=== PATIENT | female | born 1985 | race Caucasian/White ===

== ENCOUNTER → 2017-07-08 | Outpatient (CLI) | payer OTHER ==
[~2017-07-08] MED LIST: PRENTAB26 PO
[2017-07-08 16:15] LABS: URINE APPEARANCE CLEAR (CLEAR); URINE BILIRUBIN NEG (NEG); URINE COLOR YELLOW; URINE NITRITE NEG (NEG); URINE SPECIFIC GRAVITY 1.012 (1.000-1.030); UROBILINOGEN NEG (NEG)
[2017-07-08 16:17] LABS: MANUAL MICROSCOPIC REQUIRED? NO; REVIEW REQ? NO
== END | disposition home or self-care (01) ==
LOC: C.LABSPEC 15:56
PROVIDERS: ATTEND Obstetrics & Gynecology
DX: Z34.83 Encounter for supervision of other normal pregnancy, third trimester (principal); Z3A.00 Weeks of gestation of pregnancy not specified

== ENCOUNTER → 2017-07-13 | Outpatient (CLI) | payer OTHER ==
[2017-07-13 11:18] LABS: BASO % 0.1 %; BASO ABS # 0.01 K/uL (0-0.2); COMPLETE YES; EOS % 0.5 %; HEMATOCRIT 39.5 % (37-47); IG% 0.5 %; LYMPH % 21.5 %; LYMPH ABS # 2.08 K/uL (1.2-3.4); MEAN CELL VOLUME 90.4 fL (80-100); MEAN CORPUSCULAR HGB CONC 33.2 g/dl (32-36); MEAN PLATELET VOLUME 10.1 fL (7.4-10.4); MONO % 6.3 %; NEUT % 71.1 %; PLATELET COUNT 191 K/uL (130-400); RED BLOOD COUNT 4.37 M/uL (4.2-5.4); WHITE BLOOD COUNT 9.69 K/uL (4.8-10.8)
[2017-07-16 00:33] LABS: CHLAMYDIA TRACH RNA*** NOT DETECTED (NOT DETECTED); GC (NEIS GONORRHOEAE)RNA** NOT DETECTED (NOT DETECTED)
== END | disposition home or self-care (01) ==
LOC: C.LAB1850 10:20
PROVIDERS: ATTEND Obstetrics & Gynecology
DX: Z34.81 Encounter for supervision of other normal pregnancy, first trimester (principal)

== ENCOUNTER → 2017-08-10 | Outpatient (CLI) | payer OTHER ==
[2017-08-10 11:07] LABS: URINE APPEARANCE CLEAR (CLEAR); URINE BILIRUBIN NEG (NEG); URINE COLOR YELLOW; URINE NITRITE NEG (NEG); URINE SPECIFIC GRAVITY 1.016 (1.000-1.030); UROBILINOGEN NEG (NEG)
[2017-08-10 11:11] LABS: MANUAL MICROSCOPIC REQUIRED? NO; REVIEW REQ? NO
== END | disposition home or self-care (01) ==
LOC: C.LABSPEC 10:35
PROVIDERS: ATTEND Obstetrics & Gynecology
DX: O23.41 Unspecified infection of urinary tract in pregnancy, first trimester (principal)

== ENCOUNTER → 2017-11-15 | Outpatient (CLI) | payer OTHER ==
[2017-11-15 17:48] LABS: HEMATOCRIT 34.4 % (37-47); HEMOGLOBIN 11.7 g/dL (12.0-16.0)
== END | disposition home or self-care (01) ==
LOC: C.LAB1850 16:30
PROVIDERS: ATTEND Obstetrics & Gynecology
DX: Z34.83 Encounter for supervision of other normal pregnancy, third trimester (principal)

== ENCOUNTER → 2018-01-11 | Outpatient (CLI) | payer OTHER | END | disposition home or self-care (01) | LOC: C.LABSPEC 17:31 | PROVIDERS: ATTEND Obstetrics & Gynecology | DX: Z34.83 Encounter for supervision of other normal pregnancy, third trimester (principal) ==

== ENCOUNTER 2018-02-05 19:30 | Inpatient (IN) | payer OTHER ==
[~2018-02-05] VITALS: Ht 165.1 cm; Wt 75.0 kg
[2018-02-05] MEDS ORDERED: LACTATED RINGER'S 1000ML 1,000 ML IV SCH (20:29)
[2018-02-05] MEDS ORDERED: LACTATED RINGER'S 1000ML 1,000 ML IV PRN (20:29)
[2018-02-05 20:39] VITALS: Ht 165.1 cm; Wt 75.0 kg
[2018-02-05 20:53] LABS: HEMATOCRIT 35.5 % (37-47); HEMOGLOBIN 12.2 g/dL (12.0-16.0); MEAN CELL VOLUME 88.1 fL (80-100); MEAN CORPUSCULAR HEMOGLOBIN 30.3 pg (25-34); MEAN CORPUSCULAR HGB CONC 34.4 g/dl (32-36); MEAN PLATELET VOLUME 10.9 fL (7.4-10.4); PLATELET COUNT 163 K/uL (130-400); WHITE BLOOD COUNT 17.14 K/uL (4.8-10.8)
[2018-02-05] MEDS ORDERED: BUPIVACAINE 0.25% 30 ML VIAL ONE (21:16)
[2018-02-05] MEDS ORDERED: FENTANYL CITRATE INJ 50 MCG/1 ML 2 ML VIAL ONE (21:17)
[2018-02-05] MEDS ORDERED: FENTANYL 2MCG/ML ROPIV 1.25MG/ML 100ML BAG EPI ONE (21:17)
[2018-02-05] MEDS ORDERED: EpHEDrine SULFATE INJ 50 MG/ML AMP ONE (21:17)
[2018-02-05] MEDS ORDERED: LACTATED RINGER'S 1000ML 500 ML IV PRN (22:42)
[2018-02-05] MEDS ORDERED: NALOXONE HCL INJ 1 MG in SODIUM CHLORIDE 0.9% 1000ML 1,000 ML IV PRN (22:42)
[2018-02-05] MEDS ORDERED: EpHEDrine SULFATE INJ 50 MG/ML AMP IV PRN (22:45)
[2018-02-05] MEDS ORDERED: FENTANYL 2MCG/ML ROPIV 1.25MG/ML 100ML BAG EPI PRN (22:45)
[2018-02-05] MEDS ORDERED: NALOXONE HCL INJ 0.4 MG/1 ML VIAL/CARP IV PRN (22:45)
[2018-02-05] MEDS ORDERED: DiphenhydrAMINE HCL 50 MG/ML VIAL IV PRN (22:45)
[2018-02-05] MEDS ORDERED: ONDANSETRON INJ 2 MG/ML 2 ML VIAL IV PRN (22:45)
[2018-02-05] MEDS ORDERED: NALBUPHINE HCL INJ 10 MG/ML AMP IV PRN (22:45)
[2018-02-06] MEDS ORDERED: OXYTOCIN 30 UNITS/500ML NSS IV ONE (00:02)
[2018-02-06] MEDS ORDERED: LANOLIN OINT EXT PRN (00:30)
[2018-02-06] MEDS ORDERED: ACETAMINOPHEN 325 MG TAB PO PRN (00:30)
[2018-02-06] MEDS ORDERED: OXYTOCIN 30 UNITS/500ML NSS IV PRN (00:30)
[2018-02-06] MEDS ORDERED: SUPERCREAM 0.870 % 15GM JAR EXT PRN (00:30)
[2018-02-06] MEDS ORDERED: OXYCODONE/ACETAMINOPHEN 5-325 TAB PO PRN (00:30)
[2018-02-06] MEDS ORDERED: BENZOCAINE 20% AER SPR 82.5 GM CAN EXT PRN (00:30)
--- NOTE | 2018-02-06 00:50 | DELIVERY SUMMARY ---
DATE OF OPERATION: 02/06/2018 The patient is a 32-year-old 2, para 1-0-0-1 white female, EDC of 02/08/2018, who presents at 39 weeks with a chief complaint of ruptured membranes at approximately 1630 today. She presented with regular contractions every 3 minutes. Her initial exam revealed a cervix at 1-2 cm, 70% effaced with a bulging forewaters. This was ruptured artificially and was noted to be thinly stained with meconium. She then progressed in labor requesting epidural analgesia. She progressed to full dilatation and pushed effectively over an intact perineum for delivery of a viable female infant. There was a tight nuchal cord present which was clamped and cut prior to delivering the shoulders. The rest of the was delivered easily and was placed on the mother's abdomen for further attention and stimulation, was vigorous, crying and the was moving all 4 limbs after stimulation. The mouth and nasopharynx were suctioned on the perineum prior to delivering the rest of the . Placenta was expressed intact with a 3-vessel cord. A first degree perineal laceration was repaired with 3-0 chromic in the usual fashion. Estimated blood loss was 200 mL. Mother and are doing well after delivery. I attest to the content of the Intraoperative Record and any orders documented therein. Any exceptions are noted below. ASHERD
[2018-02-06] MEDS ORDERED: IBUPROFEN 600 MG TAB ONE (01:38)
[2018-02-06 02:45] VITALS: BP 129/71; PULSE 88; TEMP 36.7
[2018-02-06] MEDS: IBUPROFEN 600 MG TAB PO PRN ×4 (05:37→23:43)
--- NOTE | 2018-02-06 06:56 | OB/GYN Progress Note ---
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 Subjective conversation w/ patient, conversation w/ family, physical exam Ambulation: ambulating normally Voiding: no voiding problems Passing Gas: Yes Diet Tolerance: Regular Diet Lochia: Moderate Review of Systems Constitutional: No fever, No chills, No sweats Respiratory: No cough, No sputum, No shortness of breath Cardiac: No chest pain Abdomen: No pain, No nausea, No vomiting Female : No dysuria Objective Vital Signs Date Time Temp Pulse Resp B/P (MAP) Pulse Ox O2 Delivery O2 Flow Rate FiO2 02/06/18 02:45 36.7 88 18 129/71 (90) Room Air 02/06/18 02:45 Room Air Physical Exam General Appearance: WELL-APPEARING, WD/WN, NO APPARENT DISTRESS Respiratory/Chest: lungs clear, normal breath sounds Cardiovascular: regular rate, rhythm, no murmur Abdomen: normal bowel sounds, non tender Fundus: Firm, Relation to Umbilicus (at umbillicus ) Laboratory Results Last 24 Hours Test 02/05/18 20:44 White Blood Count 17.14 K/uL Red Blood Count 4.03 M/uL Hemoglobin 12.2 g/dL Hematocrit 35.5 % Mean Corpuscular Volume 88.1 fL Mean Corpuscular Hemoglobin 30.3 pg Mean Corpuscular Hemoglobin Concent 34.4 g/dl RDW Standard Deviation 45.0 fL RDW Coefficient of Variation 14.0 % Platelet Count 163 K/uL Mean Platelet Volume 10.9 fL Medications Current Inpatient Medications Medications (Trade) Dose Ordered Sig/Delilah Route Start Time Stop Time Status Last Admin Dose Admin Lactated Ringer's 1,000 ml @ 125 mls/hr Q8H IV 02/05/18 20:29 02/07/18 20:28 02/05/18 22:03 125 MLS/HR Lactated Ringer's 1,000 ml @ 999 mls/hr Q1H1M PRN IV 02/05/18 20:29 03/07/18 20:28 02/05/18 22:03 999 MLS/HR Oxytocin (Pitocin IV) 30 units UD PRN IV 02/06/18 00:30 03/08/18 00:29 Benzocaine (Dermoplast Aero Spr) 1 appln PRN PRN EXT 02/06/18 00:30 03/08/18 00:29 Cocaine HCl (Supercream 0.870% Cr) BID PRN EXT 02/06/18 00:30 02/20/18 00:29 Lanolin (Lanolin Oint) PRN PRN EXT 02/06/18 00:30 03/08/18 00:29 Prenat Multivit/ [place]/Iron/Folic Ac ( Vitamin Tab) 1 tab DAILY PO 02/06/18 08:00 03/08/18 07:59 Ibuprofen (Motrin Tab) 600 mg Q4H PRN PO 02/06/18 00:30 03/08/18 00:29 02/06/18 05:37 600 MG Acetaminophen (Tylenol Tab) 650 mg Q6H PRN PO 02/06/18 00:30 03/08/18 00:29 Oxycodone/ Acetaminophen (Percocet 5-325mg Tab) 1 tab Q4H PRN PO 02/06/18 00:30 02/20/18 00:29 Bisacodyl (Dulcolax Tab) 5 mg 20 PO 02/06/18 20:00 02/06/18 20:01 Docusate Sodium (coLACE CAP) 100 mg BID PO 02/06/18 08:00 03/08/18 07:59 Assessment and Plan Post- Day Number: 1 Continue Routine Care: 32 yo female, [id number] Physician Supervision Note: I was present with Dr. Jose Alfredo Headley during the history and exam. I discussed the case with the resident and agree with the findings and plan as documented in the note. Any exceptions or clarifications are listed here: [None] Documented By: Melissa Cool , vaginal delivery on 02/06 at 39.5 wks. Pt is O+/GBS-/RI. Reviewed vitals, WNL. No signs or sx of anemia. Pt doing well clinically. Plan; 1. Vaginal delivery; Cont. routine pp care; ambulate, control pain, monitor lochia
[2018-02-06] MEDS: DOCUSATE SODIUM 100 MG CAP PO SCH ×2 (08:28→20:11)
[2018-02-06] MEDS: PRENATAL VITAMIN TAB PO SCH (08:29)
[2018-02-06 08:30] VITALS: BP 105/64; PULSE 67; TEMP 36.6
--- NOTE | 2018-02-06 11:48 | Anesthesia Procedure Note ---
Anesthesia Epidural Removal Nt Date & Time Feb 06, 2018 at 11:48 Vital Signs Pain Intensity: 4.0 Vital Signs Past 12 Hours Date Time Temp Pulse Resp B/P (MAP) Pulse Ox O2 Delivery O2 Flow Rate FiO2 02/06/18 08:30 Room Air 02/06/18 08:30 36.6 67 16 105/64 (78) Room Air 02/06/18 02:45 36.7 88 18 129/71 (90) Room Air 02/06/18 02:45 Room Air Notes Mental Status: alert / awake / arousable, participated in evaluation Nausea / Vomiting: adequately controlled Pain: adequately controlled Airway Patency, RR, SpO2: stable & adequate BP & HR: stable & adequate Hydration State: stable & adequate Neuraxial Anesthesia: was administered, sensory block is resolved Anesthetic Complications: no major complications apparent, pt satisfied with anesthetic care Epidural: removed without complications, with tip intact
[2018-02-06 12:28] VITALS: BP 110/68; PULSE 71; TEMP 36.5
[2018-02-06 16:15] VITALS: BP 112/72; PULSE 79; TEMP 36.7
[2018-02-06] MEDS ORDERED: BISACODYL 5 MG TABEC PO SCH (20:00)
[2018-02-06 20:15] VITALS: BP 119/71; PULSE 85; TEMP 36.7
[2018-02-06 23:35] VITALS: BP 115/70; PULSE 69; TEMP 36.6
[2018-02-07 06:30] LABS: HEMATOCRIT 31.3 % (37-47); HEMOGLOBIN 10.3 g/dL (12.0-16.0)
--- NOTE | 2018-02-07 06:34 | OB/GYN Progress Note ---
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 Subjective conversation w/ patient, physical exam, chart review, lab review, review of studies Ambulation: ambulating normally Voiding: no voiding problems Passing Gas: Yes Diet Tolerance: Regular Diet Lochia: Moderate Feeding Type: Breast Feeding Review of Systems Constitutional: No fever, No chills Respiratory: No cough, No wheezing Cardiac: No chest pain, No orthopnea Abdomen: No nausea, No vomiting, No diarrhea Female : No dysuria, No urinary frequency Objective Vital Signs Date Time Temp Pulse Resp B/P (MAP) Pulse Ox O2 Delivery O2 Flow Rate FiO2 02/06/18 23:35 36.6 69 19 115/70 (85) Room Air 02/06/18 23:35 Room Air 02/06/18 20:15 36.7 85 20 119/71 (87) Room Air 02/06/18 16:15 Room Air 02/06/18 16:15 36.7 79 16 112/72 (85) Room Air 02/06/18 12:30 Room Air 02/06/18 12:28 36.5 71 16 110/68 (82) Room Air 02/06/18 08:30 Room Air 02/06/18 08:30 36.6 67 16 105/64 (78) Room Air Physical Exam General Appearance: WELL-APPEARING, WD/WN, NO APPARENT DISTRESS Respiratory/Chest: chest non-tender, no respiratory distress Cardiovascular: regular rate, rhythm, no murmur Abdomen: normal bowel sounds, non tender Fundus: Firm, Relation to Umbilicus (2 below ) Extremities: normal inspection, no pedal edema, no calf tenderness Laboratory Results Last 24 Hours Test 02/07/18 06:10 Hemoglobin 10.3 g/dL Hematocrit 31.3 % Medications Current Inpatient Medications Medications (Trade) Dose Ordered Sig/Delilah Route Start Time Stop Time Status Last Admin Dose Admin Lactated Ringer's 1,000 ml @ 125 mls/hr Q8H IV 02/05/18 20:29 02/07/18 20:28 02/05/18 22:03 125 MLS/HR Lactated Ringer's 1,000 ml @ 999 mls/hr Q1H1M PRN IV 02/05/18 20:29 03/07/18 20:28 02/05/18 22:03 999 MLS/HR Oxytocin (Pitocin IV) 30 units UD PRN IV 02/06/18 00:30 03/08/18 00:29 Benzocaine (Dermoplast Aero Spr) 1 appln PRN PRN EXT 02/06/18 00:30 03/08/18 00:29 Cocaine HCl (Supercream 0.870% Cr) BID PRN EXT 02/06/18 00:30 02/20/18 00:29 Lanolin (Lanolin Oint) PRN PRN EXT 02/06/18 00:30 03/08/18 00:29 Prenat Multivit/ [place]/Iron/Folic Ac ( Vitamin Tab) 1 tab DAILY PO 02/06/18 08:00 03/08/18 07:59 02/06/18 08:29 1 TAB Ibuprofen (Motrin Tab) 600 mg Q4H PRN PO 02/06/18 00:30 03/08/18 00:29 02/06/18 23:43 600 MG Acetaminophen (Tylenol Tab) 650 mg Q6H PRN PO 02/06/18 00:30 03/08/18 00:29 02/06/18 19:18 650 MG Oxycodone/ Acetaminophen (Percocet 5-325mg Tab) 1 tab Q4H PRN PO 02/06/18 00:30 02/20/18 00:29 Docusate Sodium (coLACE CAP) 100 mg BID PO 02/06/18 08:00 03/08/18 07:59 02/06/18 20:11 100 MG Assessment and Plan Post- Day Number: 1 Continue Routine Care: 32 F, , vaginal delivery on 02/06 at 39.5 wks. Pt is O+/GBS-/RI. Reviewed vitals, WNL. No signs or sx of anemia. Pt doing well clinically. Plan; 1. Vaginal delivery; Cont. routine pp care; ambulate, control pain, monitor lochia 2. Discussed Dc instructions with the patient Yocasta Headley PGY 1 Resident Physician Supervision Note: I was present with Dr. Headley during the history and exam. I discussed the case with the resident and agree with the findings and plan as documented in the note. Any exceptions or clarifications are listed here: Doing well. Desires d/c home. Instructions reviewed. Plan 6wk pp visit. Documented By: Mer Anton
--- NOTE | 2018-02-07 06:38 | Discharge Instructions ---
Discharge Instructions Date of Service Feb 07, 2018. Admission Reason for Admission: R/O Rupture Discharge Discharge Diagnosis / Problem: recovery following vaginal delivery Discharge Goals Goal(s): Routine recovery after delivery Medications Continue Dispensed Medications: supercream, dermaplast, tucks, lansinoh Activity Recommendations Activity Limitations: per Instructions/Follow-up section . Instructions / Follow-Up Instructions / Follow-Up ACTIVITY RECOMMENDATIONS: * Gradual return to full activity over the next 2-3 weeks. * No lifting - nothing heavier than baby over the next 2-3 weeks. * Do not engage in vigorous exercise, sexual activity or sports until cleared by your physician. * Do not drive or operate any motorized equipment until cleared by your physician. * You may shower/bathe daily. MEDICATIONS: For discomfort or pain, you may use Acetaminophen (Tylenol), Ibuprofen (Advil), or Naproxen (Aleve) following the package directions. For constipation you may use Colace following the package directions. If Breast Feeding: * Increase caloric intake by 500 calories, eat 3 well balanced meals, 2 high protein snacks a day and drink 6-8 8 oz glasses of fluid per day. SPECIAL CARE INSTRUCTIONS: * Vaginal rest (no tampons, douching, intercourse) until after doctor 's visit. * control as discussed with doctor. * Verbalizes understanding of car seat law as reviewed with patient nursing. * Car Seat hand-out given and reviewed with patient by nursing. * Shaken baby information reviewed with patient by nursing. Call you doctor if: * Temperature greater than or equal to 100.4 degrees F or 38.0 degrees C. Take your temperature twice daily for a week. * Bleeding becomes heavier than the heaviest part of your period - saturating a sanitary pad within an hour. * Passing large clots. * Bleeding has a foul smelling odor. * Signs and symptoms of phlebitis: leg pain, warm, red or swollen area on leg. * "Baby Blues" lasting longer than two weeks. ++ If you have had a and incision has increased pain, redness, swelling, presence of any drainage, or if the incision starts to open up. Current Hospital Diet Patient's current hospital diet: Regular OB Diet Discharge Diet Recommended Diet: Regular Diet Pending Studies Studies pending at discharge: no Medical Emergencies . Who to Call and When: Medical Emergencies: If at any time you feel your situation is an emergency, please call 911 immediately. . Non-Emergent Contact Non-Emergency issues call your: Primary Care Provider, Access Control Specialist . . "Provider Documentation" section prepared by Israel Headley. .
[2018-02-07] MEDS: IBUPROFEN 600 MG TAB PO PRN (06:39)
[2018-02-07 08:00] VITALS: BP 106/68; PULSE 74; TEMP 36.4; O2SAT 98
[2018-02-07] MEDS: PRENATAL VITAMIN TAB PO SCH (08:01)
[2018-02-07] MEDS: DOCUSATE SODIUM 100 MG CAP PO SCH (08:01)
[2018-02-07 10:46] VITALS: BP_DIAS 68; PULSE 74; TEMP 36.4
== END 2018-02-07 11:45 | disposition home or self-care (01) | DRG 775 ==
LOC: C.OPB 19:30 → C.LD 19:30 → C.OPB 20:31 → C.OBG 02-06 02:43
PROVIDERS: ADMIT Obstetrics & Gynecology; ATTEND Obstetrics & Gynecology
PROC: 0HQ9XZZ Repair Perineum Skin, External Approach (ICD-10-PCS; principal; 2018-02-06)
PROC: 10E0XZZ Delivery of Products of Conception, External Approach (ICD-10-PCS; principal; 2018-02-06)
DX: O70.0 First degree perineal laceration during delivery (principal); Z3A.39 39 weeks gestation of pregnancy; O69.1XX0 Labor and delivery complicated by cord around neck, with compression, not applicable or unspecified; O77.0 Labor and delivery complicated by meconium in amniotic fluid; Z37.0 Single live birth

== ENCOUNTER → 2018-03-23 | Outpatient (CLI) | payer OTHER | END | disposition home or self-care (01) | LOC: C.PAPS 19:32 | PROVIDERS: ATTEND Obstetrics & Gynecology | DX: Z12.4 Encounter for screening for malignant neoplasm of cervix (principal) ==